=== PATIENT | male | born 2000 | race Caucasian/White ===

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

== ENCOUNTER 2020-11-23 15:18 | Emergency (ER) | payer OTHER ==
[~2020-11-23] VITALS: Ht 180.3 cm; Wt 62.2 kg
[2020-11-23 15:18] VITALS: BP 139/89
[~2020-11-23 15:18] MED LIST changes: +CLONI1TA PO; +LAMI25TA PO; +NICO21PAT TD; +VENL37TA PO
[2020-11-23] MEDS ORDERED: ACET-683 PO (16:05)
== END 2020-11-23 16:47 | disposition left against medical advice (07) ==
LOC: M ED 15:18
DX: Z53.21 Procedure and treatment not carried out due to patient leaving prior to being seen by health care provider (principal)